=== PATIENT | male | born 1970 | race Caucasian/White ===

== ENCOUNTER 2020-09-22 09:49 | Emergency (ER) | payer BC, SELFPAY ==
--- NOTE | 2020-09-22 09:54 | ECG_ITS ---
Measurements Intervals [place] Rate: 59 P: 43 NH: 199 QRS: -14 QRSD: 86 T: 16 QT: 382 QTc: 379 Interpretive Statements SINUS BRADYCARDIA BASELINE ARTIFACT- I, II, AVR BORDERLINE ECG Electronically Signed On 09-22-2020 10:03:41 CDT by Omar Garcia D.O.
[2020-09-22 10:21] LABS: Basophils Percent Auto 0.8 % (0.2-1.2); Eosinophils Absolute Auto 0.1 K/mm3 (0-0.3); Eosinophils Percent Auto 1.9 % (0-4.4); Hematocrit 42.9 % (42.0-52.0); Hemoglobin 14.3 g/dL (14.0-18.0); Immature Granulocyte Absolute 0.01 K/mm3 (0.00-0.031); Immature Granulocyte Percent A 0.2 % (0-0.5); Lymphocytes Absolute Auto 2.03 K/mm3 (0.9-3.2); Lymphocytes Percent Auto 38.2 % (18.3-44.2); Mean Corpuscular HGB Conc 33.3 g/dl (32-36); Mean Corpuscular Hemoglobin 30.9 pg (26-34); Mean Corpuscular Volume 92.7 fl (80-100); Mean Platelet Volume 10.2 fl (7.4-10.4); Monocytes Absolute Auto 0.4 K/mm3 (0.1-0.6); Monocytes Percent Auto 7.5 % (2.6-8.5); Neutrophils Absolute Auto 2.7 K/mm3 (1.3-6.7); Neutrophils Percent Auto 51.4 % (45.5-73.1); Platelet Count Result 188 k/mm3 (150-375); Red Blood Count 4.63 M/mm3 (4.6-6.20); Red Cell Distribution Width 12.7 % (11.5-14.5); White Blood Count 5.3 K/mm3 (4.5-10.0)
[2020-09-22 10:22] VITALS: BP 124/66; PULSE 60; RESP 12; TEMP 36.3; O2SAT 100
[2020-09-22 10:31] LABS: Alanine Aminotransferase 18 U/L (4-50); Albumin Level 4.7 g/dL (3.5-5.1); Alkaline Phosphatase 64 U/L (38-126); Anion Gap 14 mmol/L (8-16); Aspartate Amino Transferase 29 U/L (17-59); Bilirubin,Total 0.4 mg/dL (0.2-1.3); Blood Urea Nitrogen 16 mg/dL (9-20); Calcium 9.8 mg/dL (8.4-10.2); Carbon Dioxide 24 mmol/L (22-30); Chloride 105 mmol/L (98-107); Estimated CRCL calculation 82 ml/min; Estimated Glomerular Filt Rate > 60; Glucose 116 mg/dL (75-110); Potassium 3.7 mmol/L (3.4-5.0); Sodium 143 mmol/L (137-145)
[2020-09-22 10:35] VITALS: BP 145/44; PULSE 60; RESP 14; O2SAT 100
[2020-09-22 10:56] LABS: Add Urine Microscopic? YES; Appearance Urine Clear (Clear); Bacteria Urine Trace /hpf; Bilirubin Urine Negative (Negative); Blood Urine Negative (Negative); Color Urine Yellow (Yellow); Glucose Urine UA Negative (Negative); Ketones Urine Trace mg/dL (Negative); Leukocyte Esterase Ur Negative LEU/UL (Negative); Nitrate Urine Negative (Negative); Protein Urine Negative (Negative); RBC Urine 0-2 /hpf (0-2); Urobilinogen Urine Negative mg/dL (<2.0); WBC Urine 0-3 /hpf
[2020-09-22] MEDS: MECLIZINE HCL 25 MG TABLET PO (11:31)
[2020-09-22 11:34] VITALS: BP 140/69; PULSE 59; RESP 12; O2SAT 100
[2020-09-22 12:21] VITALS: BP 129/65; PULSE 57; RESP 14; O2SAT 100
--- NOTE | 2020-09-22 13:03 | ED.DIZZY ---
HPI - Dizziness General Chief Complaint: Dizziness Stated Complaint: dizzy, fast HR, ears ringing Time Seen by Provider: 09/22/20 10:35 History of Present Illness HPI Narrative: Patient is a 42-year-old male who presents ER with tinnitus and dizziness. Patient has history of chronic tinnitus in both ears but it was worse in the left ear August. He also reports he has felt slightly off balance like he is falling forward. No sinus congestion or sore throat or productive cough. No diaphoresis. He has been able to ambulate without issue. No focal weakness. Related Data Home Medications Medication Instructions Recorded Confirmed [id number] tablet 09/22/20 [Atripla] Allergies Allergy/AdvReac Type Severity Reaction Status Date / Time No Known Allergies Allergy Verified 09/22/20 11:33 Review of Systems Review of Systems: All systems reviewed & are unremarkable except as noted in HPI and below Constitutional: Constitutional: Denies chills and Denies fever(s) ENT: Reports vertigo, Denies nasal congestion and Denies sore throat Comments: Tinnitus Cardiovascular: Cardiovascular: Denies chest pain, Denies rapid heart rate and Denies radiating jaw, neck or arm pain Respiratory: Respiratory: Denies cough and Denies dyspnea Neurologic: Denies syncope, Denies headache(s), Denies focal weakness and Denies numbness PMFSH Past Medical History Medical History (Updated 09/22/20 @ 13:09 by Dimitri Matos MD) HIV (human immunodeficiency virus infection) Surgical History Surgical History (Updated 09/22/20 @ 13:07 by Dimitri Matos MD) No pertinent past surgical history Family History Family History (Updated 12/11/13 @ 07:13 by DOCTOR UNKNOWN) Sibling Hypertension Grandparent Cerebrovascular accident Malignant neoplasm of prostate Family history of heart disease in male family member before age 55 Social History Social History Smoking status: Former smoker Alcohol intake: current Exam Narrative: Exam Narrative: GENERAL: Well-appearing, well-nourished, and in no acute distress. HEAD: Normocephalic, atraumatic. ENT: Mucous membranes moist. TMs normal bilaterally. CHEST: Clear to auscultation. No respiratory distress. HEART: Regular rate and rhythm. Normal peripheral pulses. EXTREMITIES: Normal range of motion. No edema. SKIN: Warm, dry, no rash. NEURO: Alert and oriented x3. PSYCH: Normal mood and affect. Course Course Emergency Course: Feels improved with meclizine. Discharge home. Vital Signs Vital signs: Vital Signs Temperature 97.4 F L 09/22/20 10:22 Pulse Rate 60 09/22/20 10:22 Respiratory Rate 12 09/22/20 10:22 Blood Pressure 124/66 09/22/20 10:22 Pulse Oximetry 100 09/22/20 10:22 Temperature 97.4 F L 09/22/20 10:22 Pulse Rate 57 L 09/22/20 12:21 Respiratory Rate 14 09/22/20 12:21 Blood Pressure 129/65 09/22/20 12:21 Pulse Oximetry 100 09/22/20 12:21 MDM - Dizziness Lab Data Result diagrams: 09/22/20 10:14 09/22/20 10:14 Labs: Lab Results 09/22/20 09/22/20 09/22/20 Range/Units 10:14 10:14 10:39 WBC 5.3 (4.5-10.0) K/mm3 RBC 4.63 (4.6-6.20) M/mm3 Hgb 14.3 (14.0-18.0) g/dL Hct 42.9 (42.0-52.0) % MCV 92.7 (80-100) fl MCH 30.9 (26-34) pg MCHC 33.3 (32-36) g/dl RDW 12.7 (11.5-14.5) % Plt Count 188 (150-375) k/mm3 MPV 10.2 (7.4-10.4) fl Immature Gran % (Auto) 0.2 (0-0.5) % Neut % (Auto) 51.4 (45.5-73.1) % Lymph % (Auto) 38.2 (18.3-44.2) % Braxton % (Auto) 7.5 (2.6-8.5) % Eos % (Auto) 1.9 (0-4.4) % Baso % (Auto) 0.8 (0.2-1.2) % Lymph # (Auto) 2.03 (0.9-3.2) K/mm3 Braxton # (Auto) 0.4 (0.1-0.6) K/mm3 Eos # (Auto) 0.1 (0-0.3) K/mm3 Baso # (Auto) 0.0 (0.0-0.1) K/mm3 Abs Immat Gran (auto) 0.01 (0.00-0.031) K/mm3 Absolute Neuts (auto) 2.7 (1.3-6.7) K/mm3 Absolute Nucleated RB
[2020-09-22 13:16] VITALS: BP 140/53; PULSE 59; RESP 17; O2SAT 99
== END 2020-09-22 13:18 | disposition home or self-care (01) ==
PROVIDERS: Emergency Provider Emergency Medicine; PCP Family Medicine
DX: R42 Dizziness and giddiness (principal); H93.13 Tinnitus, bilateral; Z87.891 Personal history of nicotine dependence; Z21 Asymptomatic human immunodeficiency virus [HIV] infection status; R00.1 Bradycardia, unspecified
CPT/HCPCS: 36415; 80053; 81001; 85025; 93005; 99283; A9270

== ENCOUNTER 2024-05-21 08:48 | Outpatient (CLI) | payer BC, SELFPAY ==
--- NOTE | ~2024-05-21 | XR_ITS ---
EXAMINATION: XR shoulder RT min 2V DATE: 05/21/2024 08:59 INDICATION: Right shoulder pain. TECHNIQUE: 4 views of right shoulder were obtained. COMPARISON: None. FINDINGS: Alignment is normal. No fracture. There is mild osteoarthritis of glenohumeral joint and se liam osteoarthritis of acromioclavicular joint. IMPRESSION: 1. Polyarticular osteoarthritis. Reviewed, dictated and finalized at location A. O [facility]ILDER
== END 2024-05-21 08:49 | disposition home or self-care (01) ==
LOC: MICIMG 08:49
PROVIDERS: PCP Family Medicine
DX: M19.011 Primary osteoarthritis, right shoulder (principal)
CPT/HCPCS: 73030